=== PATIENT | female | born 1965 | race Caucasian/White ===

== ENCOUNTER 2017-06-15 15:30 | Outpatient (RCR) | payer OTHER ==
--- NOTE | 2017-03-20 11:53 | PT PLAN OF CARE ---
Physician: Eldon Fry MD Patient is being seen: 3x/Week Therapist: Eva Membreno, PT, DPT, CLT MEDICAL DIAGNOSIS: Singleton's Neuroma Removal, L Sural Nerve Neurolysis, Peroneal Tendon Debridement TREATMENT DIAGNOSIS: Singleton's Neuroma Removal, L Sural Nerve Neurolysis, Peroneal Tendon Debridement Date of Onset: 03/02/17 Date of Initial Evaluation: 03/15/17 Date patient was last seen: 03/20/17 Number of treatments: 3 Number of cancellations/No shows: 0 INTERVENTIONS: Manual Therapy/STM/MET Strengthening/condition Ice/Heat Range of Motion Ultrasound Stretching Iontophoresis Neuromuscular Re-ed Closed Chain Program Electrical Stim Posture/Body mechanics Gait Trg/Balance Trg Biofeedback Home Exercise Program Mech./Manual Traction Therapeutic Activities GOALS: In 3 weeks pt will improve L foot and ankle ROM to equal that of the R foot for increased functional mobility with ADL's. In Progress In 6 weeks pt will increase L foot and ankle strength to 5/5 for increased performance with ADL's and ambulation. In Progress In 6 weeks pt will be independent with HEP to maintain ankle mobility and strength. In Progress PATIENT'S GOAL: Improve L ankle/foot function. Status of Patient's Goals: In Progress Patient Compliance: Good Prognosis: Good Reasons for continuing therapy: Pt lateral ligaments remain intact with increased edema surrounding the lateral ankle. Pt had increased sensitivity surrounding the sural nerve which was decreased with nerve glides, and scar tissue mobilization surrounding. Despite pain pt continues to show improvements into ROM and strength. OBJECTIVE: Incision appears to be healing nicely without any signs of redness, warmth, or inflammation. Pt has minimal swelling throughout L lateral ankle. ROM: Ankle ROM (R,L): DF (15, 10), PF (80, 75), Inversion (60, 55), Eversion ( 20, 17) Strength: MMT Ankle: R 5/5 in all motions, L 4+/5 in DF and Inv, 3+/5 in PF and Evr. Palpation: Pt is tender to palpation along the distal aspect of her incision. Sensation: Pt reports decreased sensation on the dorsal aspect of the L toes and their proximal attachments. Mobility: Pt has decreased mobility throughout the foot with superior translation of the L first tarsal on the distal metatarsal. Balance: Deferred today. If you have any questions, comments, or concerns about this report or plan, please contact me at . Thank you, Eva Membreno, PT, DPT, OZIEL ROMERO
--- NOTE | 2017-04-07 11:00 | PT PLAN OF CARE ---
Physician: Eldon Fry MD Patient is being seen: 3x/Week Therapist: Eva Membreno, PT, DPT, CLT Medical Diagnosis: Singleton's Neuroma Removal, L Sural Nerve Neurolysis, Peroneal Tendon Debride Treatment Diagnosis: Singleton's Neuroma Removal, L Sural Nerve Neurolysis, Peroneal Tendon Debride Date of Onset: 03/02/17 Date of Initial Evaluation: 03/15/17 Date patient was last seen: 04/07/17 Number of treatments: 10 Number of cancellations/No shows: 0 INTERVENTIONS: Manual Therapy/STM/MET Strengthening/condition Ice/Heat Range of Motion Ultrasound Stretching Iontophoresis Neuromuscular Re-ed Closed Chain Program Electrical Stim Posture/Body mechanics Gait Trg/Balance Trg Biofeedback Home Exercise Program Mech./Manual Traction Therapeutic Activities GOALS: In 3 weeks pt will improve L foot and ankle ROM to equal that of the R foot for increased functional mobility with ADL's. MET In 6 weeks pt will increase L foot and ankle strength to 5/5 for increased performance with ADL's and ambulation. In Progress In 6 weeks pt will be independent with HEP to maintain ankle mobility and strength. In Progress PATIENT'S GOAL: Improve L ankle/foot function. Status of Patient's Goals: In Progress Patient Compliance: Good Prognosis: Good Reasons for continuing therapy: Michaelle shows good progress with PT with full ROM bilaterally as well as generally decreased pain. Pt remains to have hypersensitivity on the lateral L malleolus and posterior but shows improvement with stimulation and with decreased swelling. Pt strength shows improvements but remains decreased compared to the contralateral limb in plantar flexion, and eversion. Further PT is indicated to continue with strength and stability gains. OBJECTIVE: Incision appears to be healing nicely without any signs of redness, warmth, or inflammation and good overall mobility with minimal restrictions at the center point. Pt has minimal swelling throughout L lateral ankle. ROM: Ankle ROM (R,L): DF (12, 12), PF (70, 70), Inversion (60, 55), Eversion ( 20, 20) Strength: MMT Ankle: R 5/5 in all motions, L 4+/5 in DF and Evr, 4/5 in PF, 5/5 Inv Palpation: Pt has hypersensitivity to light touch on the lateral and posterior aspect of the lateral malleolus. Mobility: Joint mobility is good without restrictions Balance: 4 stage balance test: all stages to 30 seconds If you have any questions, comments, or concerns about this report or plan, please contact me at . Thank you, Eva Membreno, PT, DPT, CLT MTDD
[~2017-06-15 15:30] MED LIST: ASPI-1471 PO; ASPI-715 PO; BUSP10TA95 PO; CYCL-277 PO; DIA5 PO; DULO60CA56 PO; HYDR12.561 PO; IBU600 PO; IBUP600T22 PO; KET10 PO; LOR5 PO; LOR5/325 PO; LOSA50TA72 PO; MUSCLE RELAXOR; NEBI5TAB PO; NO MEDS; OLME20TA PO; ONDA4TAB PO; ONDA4TAB97 PO; OXYC-865 PO; PANT40SU3 PO; PER PO; PREG75CA60 PO; PRO25 PO; SIMV10TA98 PO
--- NOTE | 2017-06-15 16:25 | PT PLAN OF CARE ---
Physician: Eldon Fry MD Patient is being seen: 2-3x/Week Therapist: Eva Membreno, PT, DPT, CLT Medical Diagnosis: Singleton's Neuroma Removal, L Sural Nerve Neurolysis, Peroneal Tendon Debride Treatment Diagnosis: Singleton's Neuroma Removal, L Sural Nerve Neurolysis, Peroneal Tendon Debride Date of Onset: 03/02/17 Date of Initial Evaluation: 03/15/17 Date patient was last seen: 06/15/17 Number of treatments: 19 Number of cancellations/No shows: 6 INTERVENTIONS: Manual Therapy/STM/MET Strengthening/condition Ice/Heat Range of Motion Ultrasound Stretching Iontophoresis Neuromuscular Re-ed Closed Chain Program Electrical Stim Posture/Body mechanics Gait Trg/Balance Trg Biofeedback Home Exercise Program Mech./Manual Traction Therapeutic Activities GOALS: In 3 weeks pt will improve L foot and ankle ROM to equal that of the R foot for increased functional mobility with ADL's. MET In 6 weeks pt will increase L foot and ankle strength to 5/5 for increased performance with ADL's and ambulation. MET In 6 weeks pt will be independent with HEP to maintain ankle mobility and strength. MET PATIENT'S GOAL: Improve L ankle/foot function. Status of Patient's Goals: 3/3 Goals MET Patient Compliance: Good Prognosis: Good Reasons for discharge from therapy: Michaelle is to discharge from physical therapy at this time secondary to completion of 3/3 functional goals. Pt demonstrates good ankle mobility and strength as well as no pain or hypersensitivity. Pt balance at this time is currently limited most by likely inner ear dysfunction which pt is encouraged to seek further PT for upon discharge. Back pain is centralized and maintained at a low level and pt is compliant with HEP at this time to further progress with decreased pain and improved mobility. OBJECTIVE: ROM: Ankle ROM (R,L): DF (12, 12), PF (75, 75), Inversion (55, 55), Eversion ( 25, 25) Strength: MMT Ankle: R 5/5 in all motions Palpation: Pt has hypersensitivity to light touch on the lateral and posterior aspect of the lateral malleolus. Mobility: Joint mobility is good without restrictions Balance: 4 stage balance test: all stages to 30 seconds If you have any questions, comments, or concerns about this report or plan, please contact me at . Thank you, Eva Membreno, PT, DPT, CLT MTDD
== END 2017-06-15 18:00 | disposition home or self-care (01) ==
LOC: PT 15:30
PROVIDERS: ATTEND Physician Assistant
DX: M25.571 Pain in right ankle and joints of right foot (principal); M25.572 Pain in left ankle and joints of left foot; M54.5 Low back pain; M24.272 Disorder of ligament, left ankle; W10.8XXA Fall (on) (from) other stairs and steps, initial encounter; Y92.009 Unspecified place in unspecified non-institutional (private) residence as the place of occurrence of the external cause

== ENCOUNTER 2017-09-07 08:02 | Emergency (ER) | payer OTHER ==
[~2017-09-07 08:02] MED LIST changes: +OLM20 PO; -OLME20TA PO
--- NOTE | 2017-09-07 08:05 | ER Report ---
History and Physical Time Seen By MD: 08:04 HPI/ROS CHIEF COMPLAINT: Headache, left-sided neck pain and left arm weakness HISTORY OF PRESENT ILLNESS: Patient is a 51-year-old female who has a past medical history for postconcussive syndrome with headache. She states over the past 3 week she's had her persistent headache symptoms but has noticed some left -sided neck discomfort along with some weakness into her left upper extremity along with some balance issues. She denies any new head injury. She denies fevers or chills. She denies any pain with chewing. She does report some nausea without vomiting. She denies chest pain or shortness of breath. She denies any lower extremity weakness. Patient denies any saddle anesthesia she denies any urinary retention or incontinence. REVIEW OF SYSTEMS: Constitutional: No fever, no chills. Eyes: No discharge. No diplopia ENT: No sore throat. Cardiovascular: No chest pain, no palpitations. Respiratory: No cough, no shortness of breath. Gastrointestinal: No abdominal pain, no vomiting. Genitourinary: No hematuria. Musculoskeletal: No back pain. Skin: No rashes. Neurological: Chronic headache, left upper extremity weakness Allergies: Coded Allergies: No Known Drug Allergies (Verified , 09/17/16) Home Meds Reported Medications Ibuprofen (IBUPROFEN) 600 Mg Tablet, 1 TAB PO Q6H, TAB 09/07/17 Oxybutynin Chloride (OXYBUTYNIN CHLORIDE) 5 Mg Tablet, 5 MG PO QDAY, TAB 09/07/17 Lamotrigine (LAMOTRIGINE) 25 Mg Tb.chw.dsp, 25 MG PO 09/07/17 Buspirone Hcl (BUSPIRONE HCL) 10 Mg Tablet, PO BID, #10 TAB 09/17/16 Pregabalin (LYRICA) 75 Mg Capsule, 75 MG PO BID, CAPSULE 09/17/16 Aspirin (ASPIR 81) 81 Mg Tablet.dr, 81 MG PO QDAY, TAB 06/12/16 Nebivolol Hcl (BYSTOLIC) 5 Mg Tablet, 5 MG PO DAILY 03/18/16 Duloxetine Hcl (CYMBALTA) 60 Mg Capsule.dr, 120 MG PO QHS, CAP 11/11/14 Hx Smoking: Yes Smoking Status: Current: Every Day Smoker Exposure to Second Hand Smoke?: Yes Hx Substance Use Disorder: No Hx Alcohol Use: No Constitutional Vital Sign - Last 24 Hours 09/07/17 08:07 Temp 97.9 Pulse 72 Resp 20 B/P (MAP) 127/93 Pulse Ox 97 O2 Delivery Room Air Physical Exam General/Constitutional: Patient is awake, alert, nontoxic and in no acute respiratory distress. Head: Normocephalic and atraumatic. Eyes: Conjunctival clear, Pupils are equal and reactive to light. Extraocular muscles are intact and symmetrical. Sclera are clear and anicteric. Otoscopic exam reveals sharp disks bilaterally. Normal venous pulsations Ears:External canals are clear. Tympanic membranes are clear with normal landmarks and light reflex. Nares: No rhinorrhea or bleeding. Turbinates are pink and moist. Oropharyngeal: Mucous membranes are moist. There is no pharyngeal erythema or exudate. There are no palatal petechiae. Uvula is midline and symmetrical. Neck: Supple, no adenopathy. Cardiovascular: Heart is regular rate and rhythm without audible murmurs, rubs or gallops. Pulmonary: Lungs are clear to auscultation bilaterally. There are no wheezes, rales, or rhonchi. Chest rise is symmetrical Abdomen: Soft, nontender, no guarding or peritoneal signs. Extremities: No gross deformities, No peripheral cyanosis. Able to move all 4 extremities. Neuro: Alert and oriented X3, Cranial nerves 2 thru 12 are intact and symmetrical. Patient has normal gait. Patient complains of numbness to the thumb index and 3rd finger of the left arm. Patient has weakness compared to the right arm with regard to flexion of the bicep and extension at the tricep of the left arm. Skin: No rashes, skin is warm dry and well perfused. Medical Decision Making Data Points Result Diagram: 09/07/17 0818 09/07/17 0818 Laboratory Hematology Test 09/07/17 08:08 09/07/17 08:18 Urine Color Yellow Urine Clarity Slightly-cloudy Urine pH 5.0 pH (4.8-9.5) Urine Specific [place] 1.018 Urine Protein Negative mg/dL (NEGATIVE) Urine Glucose (UA) Negative mg/dL (NEGATIVE) Urine Ketones Negative mg/dL (NEGATIVE) Urine Blood Moderate (NEGATIVE) Urine Nitrite Negative (NEGATIVE) Urine Bilirubin Negative (NEGATIVE) Urine Urobilinogen Negative mg/dL (0.2-1.9) Urine Leukocyte Esterase Negative (NEGATIVE) Urine RBC 1 /HPF (0-2/HPF) Urine WBC 3 /HPF (0-5/HPF) Urine Squamous Epithelial Cells Many /LPF (</=FEW) Urine Bacteria Negative /HPF (NONE-FEW) Urine Mucus Few /HPF (NONE-FEW) Red Blood Count 4.81 M/uL (4.17-5.56) Mean Corpuscular Volume 92.1 fL (80.0-96.0) Mean Corpuscular Hemoglobin 32.8 pg (26.0-33.0) Mean Corpuscular Hemoglobin Concent 35.6 g/dL (32.0-36.0) Red Cell Distribution Width 13.0 % (11.5-14.5) Mean Platelet Volume 8.0 fL (7.2-11.1) Neutrophils (%) (Auto) 65.8 % (39.4-72.5) Lymphocytes (%) (Auto) 26.6 % (17.6-49.6) Monocytes (%) (Auto) 5.2 % (4.1-12.4) Eosinophils (%) (Auto) 1.2 % (0.4-6.7) Basophils (%) (Auto) 1.2 % (0.3-1.4) Nucleated RBC Relative Count (auto) 0.0 /100WBC Neutrophils # (Auto) 3.8 K/uL (2.0-7.4) Lymphocytes # (Auto) 1.5 K/uL (1.3-3.6) Monocytes # (Auto) 0.3 K/uL (0.3-1.0) Eosinophils # (Auto) 0.1 K/uL (0.0-0.5) Basophils # (Auto) 0.1 K/uL (0.0-0.1) Nucleated RBC Absolute Count (auto) 0.00 K/uL Peripheral Blood Smear No Y/N Sodium Level 143 mmol/L (137-145) Potassium Level 3.0 mmol/L (3.5-5.0) Chloride Level 101 mmol/L (98-107) Carbon Dioxide Level 27 mmol/L (22-31) Blood Urea Nitrogen 7 mg/dl (7-18) Creatinine 0.90 mg/dl (0.52-1.04) Glomerular Filtration Rate Calc > 60.0 Random Glucose 80 mg/dl (75-110) Calcium Level 9.7 mg/dl (8.4-10.2) Total Bilirubin 0.5 mg/dl (0.2-1.3) Aspartate Amino Transf (AST/SGOT) 15 U/L (0-35) Alanine Aminotransferase (ALT/SGPT) 13 U/L (0-56) Alkaline Phosphatase 53 U/L (0-126) Total Protein 7.3 gm/dl (6.3-8.2) Albumin 4.1 g/dl (3.5-5.0) Chemistry Test 09/07/17 08:08 09/07/17 08:18 Urine Color Yellow Urine Clarity Slightly-cloudy Urine pH 5.0 pH (4.8-9.5) Urine Specific [place] 1.018 Urine Protein Negative mg/dL (NEGATIVE) Urine Glucose (UA) Negative mg/dL (NEGATIVE) Urine Ketones Negative mg/dL (NEGATIVE) Urine Blood Moderate (NEGATIVE) Urine Nitrite Negative (NEGATIVE) Urine Bilirubin Negative (NEGATIVE) Urine Urobilinogen Negative mg/dL (0.2-1.9) Urine Leukocyte Esterase Negative (NEGATIVE) Urine RBC 1 /HPF (0-2/HPF) Urine WBC 3 /HPF (0-5/HPF) Urine Squamous Epithelial Cells Many /LPF (</=FEW) Urine Bacteria Negative /HPF (NONE-FEW) Urine Mucus Few /HPF (NONE-FEW) White Blood Count 5.8 k/uL (4.5-11.0) Red Blood Count 4.81 M/uL (4.17-5.56) Hemoglobin 15.8 g/dL (12.0-16.0) Hematocrit 44.3 % (34.0-47.0) Mean Corpuscular Volume 92.1 fL (80.0-96.0) Mean Corpuscular Hemoglobin 32.8 pg (26.0-33.0) Mean Corpuscular Hemoglobin Concent 35.6 g/dL (32.0-36.0) Red Cell Distribution Width 13.0 % (11.5-14.5) Platelet Count 233 K/uL (150-450) Mean Platelet Volume 8.0 fL (7.2-11.1) Neutrophils (%) (Auto) 65.8 % (39.4-72.5) Lymphocytes (%) (Auto) 26.6 % (17.6-49.6) Monocytes (%) (Auto) 5.2 % (4.1-12.4) Eosinophils (%) (Auto) 1.2 % (0.4-6.7) Basophils (%) (Auto) 1.2 % (0.3-1.4) Nucleated RBC Relative Count (auto) 0.0 /100WBC Neutrophils # (Auto) 3.8 K/uL (2.0-7.4) Lymphocytes # (Auto) 1.5 K/uL (1.3-3.6) Monocytes # (Auto) 0.3 K/uL (0.3-1.0) Eosinophils # (Auto) 0.1 K/uL (0.0-0.5) Basophils # (Auto) 0.1 K/uL (0.0-0.1) Nucleated RBC Absolute Count (auto) 0.00 K/uL Peripheral Blood Smear No Y/N Glomerular Filtration Rate Calc > 60.0 Calcium Level 9.7 mg/dl (8.4-10.2) Total Bilirubin 0.5 mg/dl (0.2-1.3) Aspartate Amino Transf (AST/SGOT) 15 U/L (0-35) Alanine Aminotransferase (ALT/SGPT) 13 U/L (0-56) Alkaline Phosphatase 53 U/L (0-126) Total Protein 7.3 gm/dl (6.3-8.2) Albumin 4.1 g/dl (3.5-5.0) Urinalysis Test 09/07/17 08:08 Urine Color Yellow Urine Clarity Slightly-cloudy Urine pH 5.0 pH (4.8-9.5) Urine Specific [place] 1.018 Urine Protein Negative mg/dL (NEGATIVE) Urine Glucose (UA) Negative mg/dL (NEGATIVE) Urine Ketones Negative mg/dL (NEGATIVE) Urine Blood Moderate (NEGATIVE) Urine Nitrite Negative (NEGATIVE) Urine Bilirubin Negative (NEGATIVE) Urine Urobilinogen Negative mg/dL (0.2-1.9) Urine Leukocyte Esterase Negative (NEGATIVE) Urine RBC 1 /HPF (0-2/HPF) Urine WBC 3 /HPF (0-5/HPF) Urine Squamous Epithelial Cells Many /LPF (</=FEW) Urine Bacteria Negative /HPF (NONE-FEW) Urine Mucus Few /HPF (NONE-FEW) EKG/Imaging Imaging [place]AC[place] [facility] [place]IENT NAME: Michaelle iWggins : 1965 MR: [id number] V: [id number] EXAM DATE: ORDERING PHYSICIAN: VICTORIANO CHE TECHNOLOGIST: Location: [facility] Patient: Michaelle Wiggins : 1965 Visit/Account:[id number] Date of Sevice: 09/07/2017 HEAD W/O CONTRAST, C-SPINE W/O CONTRAST Provided history: HEADACHE Additional pertinent history: none TECHNIQUE: Imaging was obtained from the skull base through the vertex, followed by spiral scan of the cervical spine without intravenous contrast. Source images were reformatted in the coronal sagittal planes. The cervical spine spiral source images were reformatted in the coronal and sagittal planes. One of the following dose optimization techniques was utilized in the performance of this exam: Automated exposure control; adjustment of the mA and/ or kV according to the patient's size; or use of an iterative reconstruction technique. Specific details can be referenced in the facility's radiology CT exam operational policy. COMPARISON STUDIES: 03/18/16 FINDINGS: BRAIN: Brain volume: Normal Acute cortical ischemia: None Chronic cortical and ganglionic ischemia: none significant Hemorrhage: None Masses / edema: None White matter: Normal Vessels: Normal Extra-axial: None significant Calvarium / scalp: Negative Skull base: negative Visualized sinuses / orbits: negative CERVICAL SPINE: Extra-vertebral soft tissues: Mild diffuse heterogeneity in the thyroid gland without a definable mass, unchanged from prior. Acute bone and soft tissue findings: None. There is a well-defined ossific density on the posterior margin of the left C7-T1 facet pillar, sagittal image 68 that is unchanged from prior and likely a sequela of old injury or a tiny unfused apophysis. This is not significant. Chronic / degenerative findings: Moderate scoliosis convex right at the cervicothoracic junction. Moderate marginal spurring anterior C1 ring odontoid junction unchanged. Mild disc space narrowing in the lower C-spine. Moderate-sized symmetric osteophyte at C6-7 without significant compromise of the canal. Left lateralization results in severe narrowing of the left foramen. The final is unchanged from prior. IMPRESSION: 1. Normal CT of the brain. No evidence of mass, acute ischemia or hemorrhage. 2. No acute bone or joint abnormality cervical spine. 3. Stable severe compromise left C6-C7 foramen. Report Dictated By: Jay Guzman MD at 09/07/2017 9:33 AM Report E-Signed By: Jay Guzman MD at 09/07/2017 9:40 AM ED Course/Re-evaluation Clinical Indication for ER IV: Hydration, IV Access ED Course 09/07/2017 8:35:22 am symptoms sound similar to the patient's postconcussive headache type syndrome. New motor weakness along with neck pain may be related to a cervical radiculopathy. Plan at this time will be CT of the head along the C-spine. We will give IV Toradol and Zofran. Decision to Disposition Date: September 07, 2017 Decision to Disposition Time: 09:55 Depart Departure Latest Vital Signs Vital Signs Date Time Temp Pulse Resp B/P (MAP) Pulse Ox O2 Delivery O2 Flow Rate FiO2 09/07/17 08:07 97.9 72 20 127/93 97 Room Air Impression: Primary Impression: Cervical radicular pain Condition: Improved Disposition: HOME OR SELF-CARE Referrals: KIA BLAKE (PCP) [facility] call to schedule follow up appointment for reevaluation of your cervical radiculopathy New Scripts Methocarbamol (ROBAXIN-750) 750 Mg Tablet 1500 MG PO TID for Muscle Relaxant, #30 TAB 0 Refills Prov: VICTORIANO CHE MD 09/07/17 Patient Instructions: Cervical Radiculopathy (ED) VICTORIANO CHE MD September 07, 2017 08:05
[2017-09-07] MEDS ORDERED: LAMO25TB PO (08:17)
[2017-09-07] MEDS ORDERED: OXYB5TAB86 PO (08:17)
[2017-09-07] MEDS ORDERED: IBUP600T22 PO (08:17)
[2017-09-07] MEDS ORDERED: KETOROLAC 30 MG/ML VIAL IVP ONE (08:25)
[2017-09-07] MEDS ORDERED: ONDANSETRON 4 MG/2 ML VIAL IVP ONE (08:25)
[2017-09-07] MEDS ORDERED: NS(*) 0.9% 1000 ML BAG 1,000 ML IV ONE (08:25)
[2017-09-07 08:37] LABS: PLATELET COUNT, AUTOMATED 233 K/uL (150-450)
[2017-09-07] MEDS ORDERED: ORPHENADRINE 60MG/2ML INJ IVP ONE (09:35)
[2017-09-07] MEDS ORDERED: DEXAMETHASONE SOD PHOS 10MG/ML IVP ONE (09:35)
--- NOTE | 2017-09-07 09:45 | RADIOLOGY IMAGING REPORT ---
FACILITY: [facility] - [place] PATIENT NAME: Michaelle Wiggins : 1965 MR: [id number] V: [id number] EXAM DATE: ORDERING PHYSICIAN: VICTORIANO CHE TECHNOLOGIST: Location: [facility] - [place] Patient: Michaelle Wiggins : 1965 Visit/Account:[id number] Date of Sevice: 09/07/2017 HEAD W/O CONTRAST, C-SPINE W/O CONTRAST Provided history: HEADACHE Additional pertinent history: none TECHNIQUE: Imaging was obtained from the skull base through the vertex, followed by spiral scan of th e cervical spine without intravenous contrast. Source images were reformatted in the coronal sagitta l planes. The cervical spine spiral source images were reformatted in the coronal and sagittal planes. One of the following dose optimization techniques was utilized in the performance of this exam: Autom ated exposure control; adjustment of the mA and/or kV according to the patient's size; or use of an i terative reconstruction technique. Specific details can be referenced in the facility's radiology CT exam operational policy. COMPARISON STUDIES: 03/18/16 FINDINGS: BRAIN: Brain volume: Normal Acute cortical ischemia: None Chronic cortical and ganglionic ischemia: none significant Hemorrhage: None Masses / edema: None White matter: Normal Vessels: Normal Extra-axial: None significant Calvarium / scalp: Negative Skull base: negative Visualized sinuses / orbits: negative CERVICAL SPINE: Extra-vertebral soft tissues: Mild diffuse heterogeneity in the thyroid gland without a definable ma ss, unchanged from prior. Acute bone and soft tissue findings: None. There is a well-defined ossific density on the posterior margin of the left C7-T1 facet pillar, sagittal image 68 that is unchanged from prior and likely a s equela of old injury or a tiny unfused apophysis. This is not significant. Chronic / degenerative findings: Moderate scoliosis convex right at the cervicothoracic junction. Moderate marginal spurring anterior C1 ring odontoid junction unchanged. Mild disc space narrowing in the lower C-spine. Moderate-sized symmetric osteophyte at C6-7 without significant compromise of the canal. Left lateralization results in severe narrowing of the left for amen. The final is unchanged from prior. IMPRESSION: 1. Normal CT of the brain. No evidence of mass, acute ischemia or hemorrhage. 2. No acute bone or joint abnormality cervical spine. 3. Stable severe compromise left C6-C7 foramen. Report Dictated By: Jay Guzman MD at 09/07/2017 9:33 AM Report E-Signed By: Jay Guzman MD at 09/07/2017 9:40 AM WSN:[id number]
--- NOTE | 2017-09-07 09:45 | RADIOLOGY IMAGING REPORT ---
[place]AC[place] [facility] [place]IENT NAME: Michaelle Wiggins : 1965 MR: [id number] V: [id number] EXAM DATE: ORDERING PHYSICIAN: VICTORIANO CHE TECHNOLOGIST: Location: [facility] Patient: Michaelle Wiggins : 1965 Visit/Account:[id number] Date of Sevice: 09/07/2017 HEAD W/O CONTRAST, C-SPINE W/O CONTRAST Provided history: HEADACHE Additional pertinent history: none TECHNIQUE: Imaging was obtained from the skull base through the vertex, followed by spiral scan of th e cervical spine without intravenous contrast. Source images were reformatted in the coronal sagitta l planes. The cervical spine spiral source images were reformatted in the coronal and sagittal planes. One of the following dose optimization techniques was utilized in the performance of this exam: Autom ated exposure control; adjustment of the mA and/or kV according to the patient's size; or use of an i terative reconstruction technique. Specific details can be referenced in the facility's radiology CT exam operational policy. COMPARISON STUDIES: 03/18/16 FINDINGS: BRAIN: Brain volume: Normal Acute cortical ischemia: None Chronic cortical and ganglionic ischemia: none significant Hemorrhage: None Masses / edema: None White matter: Normal Vessels: Normal Extra-axial: None significant Calvarium / scalp: Negative Skull base: negative Visualized sinuses / orbits: negative CERVICAL SPINE: Extra-vertebral soft tissues: Mild diffuse heterogeneity in the thyroid gland without a definable ma ss, unchanged from prior. Acute bone and soft tissue findings: None. There is a well-defined ossific density on the posterior margin of the left C7-T1 facet pillar, sagittal image 68 that is unchanged from prior and likely a s equela of old injury or a tiny unfused apophysis. This is not significant. Chronic / degenerative findings: Moderate scoliosis convex right at the cervicothoracic junction. Moderate marginal spurring anterior C1 ring odontoid junction unchanged. Mild disc space narrowing in the lower C-spine. Moderate-sized symmetric osteophyte at C6-7 without significant compromise of the canal. Left lateralization results in severe narrowing of the left for amen. The final is unchanged from prior. IMPRESSION: 1. Normal CT of the brain. No evidence of mass, acute ischemia or hemorrhage. 2. No acute bone or joint abnormality cervical spine. 3. Stable severe compromise left C6-C7 foramen. Report Dictated By: Jay Guzman MD at 09/07/2017 9:33 AM Report E-Signed By: Jay Guzman MD at 09/07/2017 9:40 AM WSN:[id number]
[2017-09-07] MEDS ORDERED: METH-543 PO (09:55)
[2017-09-07 09:57] VITALS: BP 131/82
== END 2017-09-07 10:06 | disposition home or self-care (01) ==
LOC: ER 08:06
DX: M54.12 Radiculopathy, cervical region (principal)
CPT/HCPCS: 70450; 72125; 81001; 85025; 85651; 96361; 96374; 96375; 99284; J1100; J1885; J2360; J2405; J7030; 82040; 82247; 82310; 82374; 82435; 82565; 82947; 84075; 84132; 84155; 84295; 84450; 84460; 84520

== ENCOUNTER → 2018-01-04 | Outpatient (CLI) | payer OTHER ==
[~2018-01-04] MED LIST changes: +BUS5 PO; +LAMO25TB7 PO; +LAMO50TA PO; +METH-543 PO; +OXYB5TAB86 PO; +PANT40TA65 PO; +SIMV-49 PO
[2018-01-04 08:12] LABS: LDL CHOLESTEROL 110 mg/dl
== END ==
LOC: LAB 07:14
PROVIDERS: ATTEND Internal Medicine
DX: I10 Essential (primary) hypertension (principal); E78.00 Pure hypercholesterolemia, unspecified
CPT/HCPCS: 36415; 82040; 82247; 82310; 82374; 82435; 82465; 82565; 82947; 83718; 84075; 84132; 84155; 84295; 84450; 84460; 84478; 84520

== ENCOUNTER 2018-01-17 08:15 | Outpatient (RCR) | payer OTHER ==
--- NOTE | 2017-10-23 09:31 | PT INITIAL EVALUATION ---
MEDICAL DIAGNOSIS: Cervical radiculopathy (M54.12) TREATMENT DIAGNOSIS: Same DATE OF ONSET: 09/07/17 SUBJECTIVE: Michaelle Wiggins presents to PT for L C6/7 radiculopathy with insidious onset September 07, 2017. She reports weakness and L C6/7 ache. She finds typing, lifting files, movement in general worsens neck and arm pain and nothing relieves it. She hasn't been doing her lumbar exercises due to this neck pain and she'd like to return to this. Pain location is posterior neck to L C6/7, sometimes R C6/7, intrascapular and described as ache, shooting pain. Pain scale is 4-9 on a ten point pain scale. Pain is worse with movement, typing, lifting files and better with traction. REHAB PROBLEM LIST: Increased Pain, Decreased ROM, Decreased C5/6/7 Strength PREVIOUS MEDICAL HISTORY: CRPS, L ankle reconstruction 2016, PE, HTN, post-concussion syndrome. OCCUPATION: Office work, DFS. OBJECTIVE: Posture: Mild forward head. ROM: AROM cervical spine WNL rotation B, 75% sidebend B, full extension and 50% flexion with L SB painful. Thoracic AROM WNL with mild R upper thoracic scoliosis. Strength: Biceps R 4/5, L 4-/5, wrist flexors R 5/5, L 4/5, triceps R 5/5, L 5-/ 5, otherwise C5-C8 5/5. 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 Palpation: High tone and pain posterior lower cervical region, overlying the L C6/7 facets Special Tests: DTR's 2/3 C4-7. ASSESSMENT: Michaelle Wiggins presents with L C5/6/7 chicas muscle weakness, radicular pain. She had less pain after traction and is started on cervical AROM for foramenal opening. Short Term Goals 3 weeks: L C6/7 symptoms centralized to the cervical spine, types with cervical pain 2/10. Patient's Goals Alleviate neck pain and weakness. PLAN: Patient to be seen for Manual Therapy, Range of Motion/Stretching, Spinal Stabilization, Posture/Body mechanics, Home Exercise Program, [facility] Manual Traction 3x/Week for 3 weeks Thank you for this referral. If you have any questions, comments, or concerns about this report or plan, please contact me at . [facility]
--- NOTE | 2017-11-22 15:34 | PT PLAN OF CARE ---
Physician: Dr. Nayan Dunlap Patient is being seen: 2-3x/week, 3 weeks Therapist: Delores Gómez, PT Medical Diagnosis: Cervical radiculopathy (M54.12) 11/22/17: R26.89 Imbalance Treatment Diagnosis: Same Date of Cervical Onset: 09/07/17 Date of Initial (Cervical) Evaluation: 10/23/17 Imbalance Onset: 03/11/2016 (Imbalance): 11/22/17 Date patient was last seen: Cervical: 11/10/17, Imbalance: 11/22/17 Number of treatments: 8 Number of cancellations/No shows: 0 Cervical INTERVENTIONS: Manual Therapy, Range of Motion, Spinal Stabilization, Stretching, Home Exercise Program GOALS: 3 weeks: L C6/7 symptoms centralized to the cervical spine (met), types with cervical pain 2/10 (not met). Imbalance: All not met: 1 month: Michaelle ambulates with head motion with normal line of progression, scrolls through computer work 10 minutes before having to look away. 2 months: Michaelle awakens with dizziness reduced 50%, demonstrates normal balance with turning 180 degrees. 3 months: Michaelle reports headaches and dizziness are reduced 50% with computer work, demonstrates normal postural control on uneven surfaces. PATIENT'S GOAL: Alleviate neck pain and weakness. not met Imbalance: Not met: Have less dizziness with computer work, scroll through the computer longer and with less dizziness. Patient Cervical Compliance: Excellent Prognosis: Excellent Reasons for continuing therapy: S: Cervical: Michaelle has finished her three weeks of PT with L C6/7 symptoms centralized to the lower cervical region, 4-8/10 pain scale, worse with lifting , but typing improved. She now reports L C4/5 symptoms at the scapula. Imbalance: Michaelle reports two CHI at home, 04/03/2015, vacuum fell on her R head, mild imbalance then 03/11/16, dog head butted the crown of her head with strong change of PARIKH's, balance, dizziness (computer work, gait with head motion , fatigue, neck motion), episodic vertigo (upon awakening in the morning). O: Cervical: Posture: Mild forward head. ROM: AROM cervical spine WNL rotation B, 25% sidebend B (full PROM sidebend), full extension and flexion with extension painful. Thoracic AROM WNL with mild R upper thoracic scoliosis. Strength: Biceps R 5-/5, L 4+/5, wrist flexors B 5/5, triceps B 5/5, R wrist extensors 5/5, L 4+/5. [employer] strength R 56 x3 lbs., L 45, 40, 39 lbs, with strickler attendant strength not changed significantly. Palpation: Still high tone and pain posterior lower cervical region, overlying the L C6/7 facets. Imbalance: Special tests: Positive head thrust, VOR x1, x2 for dizziness without nystagmus. Negative resting nystagmus, Spivey pike and roll test B, cerebellar tests. Proprioception intact B great toes and ankles. Gait: Functional gait assessment 20% impairment with LE dyskinesia with gait with head motion, walking forward eyes shut. Turning 180 deg with increased trunk sway, retro balance disturbance turning L, ambulating backwards with discordant steps. Heel/toe walking with mild dyskinesia but trunk control and change of gait speed is normal. Michaelle is able to clear 8" high curbs, uses stairs without handrail with control. Balance: Static stand on firm surface, eyes closed with increased postural sway , dizziness, head midline, on foam with eyes closed with strong A/P trunk sway, worse dizziness and retro balance loss, stepping reflex intact to recover balance. Static tandem stand with LOB from decreased trunk stability, UE extension balance reactions. Hip balance strategy is utilized instead of ankle strategy for postural sway. A/P: Cervical: Michaelle Wiggins had only a small reduction of cervical pain, improvement of ROM and centralization of L C6/7 radicular pain, but not significant change of strickler attendant strength, while chicas muscle testing was more even L to R. We've finished her 3 weeks of cervical PT. I feel she hasn't made significant gains with PT but please advise if you'd like further spinal PT. Thank you. Imbalance: Michaelle Wiggins presents with altered balance integration, altered balance strategies and dyskinesias consistent with her history of CHI, not peripheral vestibular disease. I wasn't able to elicit nystagmus or spinning vertigo in today's testing. She's a good candidate to work vestibular habituation, balance and gait training to reduce her vestibular symptoms with eye and head movement and to be less of a fall risk in gait. If you agree, we' ll work balance PT 2x/week 3 months to goals set. Thank you. HEATHER
--- NOTE | 2017-12-18 10:51 | PT PLAN OF CARE ---
Physician: Dr. Nayan Dunlap, Dr. Verona Simmons Patient is being seen: 5x/week Therapist: Delores Gómez PT Medical Diagnosis: Cervical radiculopathy (M54.12) Treatment Diagnosis: Same Date of Onset: 09/07/17 Date of Initial Evaluation: 10/23/17 Date patient was last seen: 12/18/17 Number of treatments: 20 Number of cancellations/No shows: 0 INTERVENTIONS: Manual Therapy Range of Motion Spinal Stabilization Stretching Home Exercise Program Mech./Manual Traction GOALS: 3 weeks: L C6/7 symptoms centralized to the cervical spine (met), types with cervical pain 2/10 (not met, 5/10). Imbalance: 1 month: Michaelle ambulates with head motion with normal line of progression (progressing), scrolls through computer work 10 minutes before having to look away (not met). 2 months: Michaelle awakens with dizziness reduced 50% (not met), demonstrates normal balance with turning 180 degrees (progressing). 3 months: (all not met): Michaelle reports headaches and dizziness are reduced 50 % with computer work, demonstrates normal postural control on uneven surfaces. PATIENT'S GOAL: Alleviate neck pain and weakness. not met Imbalance: Have less dizziness with computer work, scroll through the computer longer and with less dizziness. Patient Compliance: Excellent Prognosis: Excellent Reasons for continuing therapy: S: Cervical: Michaelle finds mechanical traction bothered her neck but manual traction helped centralize C4/5 symptoms to the neck and manual stretching and exercise centralized L C6/7 symptoms to the neck. Typing creates cervical pain 5 /10. Imbalance: Michaelle still has to look away after a few minutes of scrolling with her computer.She has LOB with turning 180 degrees in the shower, with bending forward to wash her legs in the shower. O: Cervical: Posture: Mild forward head. ROM: AROM cervical spine WNL rotation B, R sidebend 75% with L cervical soft tissue pain, L side bend full, full extension and flexion. Thoracic AROM WNL with mild R upper thoracic scoliosis. Palpation: Moderate tone and myofascial pain L LS, UT, tight subscapularis and pecs. Imbalance: Gait/balance: Michaelle now ambulates with minimal to no weaving during gait with head motion. She has retro balance disturbance with 180 deg. turns and out-of-sync feeling. VOR x1 still <2 Hz, dizziness, positive head thrust, VOR x2 for out-of-sync feeling. Improving postural stability with tandem stand, but not WNL. Mild increase of postural sway standing on foam, eyes closed, out-of-sync feeling reported. A/P: Michaelle Wiggins is improving cervical ROM, working on spinal and scapular strengthening, is slowly habituating her vestibular system from her CHI's. If you agree, we'll continue 3x/week cervical PT, 2x/week balance PT, for 2 more months. Thank you. HEATHER
[~2018-01-17 08:15] MED LIST changes: -LOSA50TA72 PO; +LOSA50TA74 PO
== END 2018-01-21 ==
LOC: PT 08:15
PROVIDERS: ATTEND Neurological Surgery
DX: M54.12 Radiculopathy, cervical region (principal); I10 Essential (primary) hypertension; F07.81 Postconcussional syndrome
CPT/HCPCS: 97162

== ENCOUNTER 2018-01-24 15:22 | Outpatient (RCR) | payer OTHER ==
--- NOTE | 2018-01-22 17:23 | PT PLAN OF CARE ---
Physician: Dr. Nayan Dunlap, Dr. Verona Simmons 3 month business office note Patient is being seen: 2-3x/week Therapist: Delores Gómez PT Medical Diagnosis: Cervical radiculopathy (M54.12) Treatment Diagnosis: Same Date of Onset: 09/07/17 Date of Initial Evaluation: 10/23/17 Date patient was last seen: 01/22/18 Number of treatments: 26 Number of cancellations/No shows: 0 INTERVENTIONS: Balance, Vestibular Exercise, Cervical Manual Therapy, Stretching, Spinal Stabilization and Muscle Balancing Exercise, Manual Traction GOALS: 3 weeks: L C6/7 symptoms centralized to the cervical spine (partially met), types with cervical pain 2/10 (progressing, 4/10). Imbalance: 1 month: Michaelle ambulates with head motion with normal line of progression (met), scrolls through computer work 10 minutes before having to look away (not met, still 5 minutes). 2 months: Michaelle awakens with dizziness reduced 50% (not met), demonstrates normal balance with turning 180 degrees (not met). 3 months: (all not met): Michaelle reports headaches and dizziness are reduced 50% with computer work, demonstrates normal postural control on uneven surfaces. PATIENT'S GOAL: Alleviate neck pain and weakness. (not met) Imbalance: Have less dizziness with computer work, scroll through the computer longer and with less dizziness. (both not met) Patient Compliance: Excellent Prognosis: Excellent Reasons for continuing cervical therapy/discontinuing balance therapy: S: Michaelle continues to reports L hand numbness with typing 10 minutes, but less intense, 4/10 at the neck and hand, can scroll slowly through the computer pages for 5 minutes then dizziness. She still awakens with dizziness, is dizzy with eyes shut. The balance exercises were aggravating her ankles, causing difficulty walking, flaring LBP and gait with head motion is flaring her cervical pain. Cervical: Posture: Mild forward head. ROM: AROM cervical spine WNL rotation B, full sidebend and extension and 75% flexion with L SB still painful. Thoracic AROM WNL with mild R upper thoracic scoliosis. Strength: NT today except core strength 3+/5. Palpation: Moderate tone now and still pain posterior lower cervical region, overlying the L C6/7 facets. Pec minor, subscapularis and scaleni are still tight. Balance: Vestibular: VOR x1 causes dizziness still <2 Hz. Gait with head rotation with normal line of progression. 180 deg. turns at slow speed with balance control, at fast speed with LOB, out-of-sync feeling and can trigger a headache. No nystagmus with vestibular exercises. Postural control: Static stand on firm surface with retro balance loss now, out-of-sync feeling. A/P: Vestibular training is hindered by Michaelle's ankles and LBP flaring. I feel they and her cervical pain are hindering balance training. If you agree, I'll discharge imbalance PT for now, address cervical pain and weakness, doing full spine strengthening, manual therapy, stretching to goals met. When her cervical pain has settled down, I'll call for a imbalance PT script from Dr. Simmons's office. We'll continue cervical PT 2-3x/week another 6 weeks. Thank you. HEATHER
[2018-02-06] MEDS ORDERED: LIDO700A19 TOP (09:36)
[2018-02-20] MEDS ORDERED: FLU60VIA41 IM (08:53)
--- NOTE | 2018-03-06 12:57 | PT PLAN OF CARE ---
Physician: Dr. Nayan Dunlap Patient has stopped attending PT Therapist: Delores Gómez, PT Medical Diagnosis: Cervical radiculopathy (M54.12) Treatment Diagnosis: Same Date of Onset: 09/07/17 Date of Initial Evaluation: 10/23/17 Date patient was last seen: 01/26/18 Number of treatments: 27 Number of cancellations/No shows: [*] INTERVENTIONS: Manual Therapy Range of Motion Spinal Stabilization Stretching Posture/Body mechanics Home Exercise Program Manual Traction GOALS: 3 weeks: L C6/7 symptoms centralized to the cervical spine (partially met), types with cervical pain 2/10 (progressing, 4/). Imbalance: 1 month: Michaelle ambulates with head motion with normal line of progression (met), scrolls through computer work 10 minutes before having to look away (not met). 2 months: Michaelle awakens with dizziness reduced 50% (not met), demonstrates normal balance with turning 180 degrees (progressing). 3 months: (all not met): Michaelle reports headaches and dizziness are reduced 50% with computer work, demonstrates normal postural control on uneven surfaces. PATIENT'S GOAL: Alleviate neck pain and weakness. (not met) Imbalance: Have less dizziness with computer work, scroll through the computer longer and with less dizziness. (both not met) Patient Compliance: Fair Prognosis: Excellent Reasons for discontinuing therapy: Michaelle attended one more time after the Plan of Care note of 02/01/18. Please see that note for last measures. I had discharged balance PT as her ankle didn't tolerate it. She'd had moderate cervical pain and hand paresthesia on the that responded well to exercise and manual therapy. I'll DC PT due to non-attendance. Thank you. HEATHER
== END 2018-01-24 18:00 | disposition home or self-care (01) ==
LOC: PT 15:22
PROVIDERS: ATTEND Neurological Surgery
DX: M54.12 Radiculopathy, cervical region (principal); R26.89 Other abnormalities of gait and mobility; M62.81 Muscle weakness (generalized)

== ENCOUNTER → 2018-01-30 | Outpatient (CLI) | payer OTHER ==
[2018-01-30 09:08] LABS: PLATELET COUNT, AUTOMATED 247 K/uL (150-450)
--- NOTE | 2018-01-30 15:19 | RADIOLOGY IMAGING REPORT ---
FACILITY: [facility] - [place] PATIENT NAME: Michaelle Wiggins : 1965 MR: [id number] V: [id number] EXAM DATE: ORDERING PHYSICIAN: KRISTOFER LEDEZMA TECHNOLOGIST: Location[place] [facility] [place] Patient: Michaelle Wiggins : 1965 Visit/Account:[id number] Date of Sevice: 01/30/2018 KUB SINGLE VIEW ABDOMEN History: Left lower quadrant pain. Comparison study: None. Findings: There are no dilated loops of large or small bowel to suggest ileus or obstruction. There are no findings of a renal calculus. There are phleboliths in the pelvis. In the region of th e distal left ureter there is a small calcific density oriented along the course of the ureter. Jamal elation clinical exam or UA specimen would be helpful. IMPRESSION: 1. Nonspecific bowel gas pattern without findings of ileus or obstruction. 2. Query distal left ureteral calculus. A CT scan might be helpful for further evaluation. Correla tion with clinical exam would also be helpful. Report Dictated By: Brent Arce MD at 01/30/2018 3:14 PM Report E-Signed By: Brent Arce MD at 01/30/2018 3:15 PM [id number]
== END ==
LOC: LAB 08:49
PROVIDERS: ATTEND Internal Medicine
DX: N20.1 Calculus of ureter (principal); R32 Unspecified urinary incontinence; R31.9 Hematuria, unspecified; E11.9 Type 2 diabetes mellitus without complications
CPT/HCPCS: 36415; 74018; 81001; 82040; 82150; 82247; 82310; 82374; 82435; 82565; 82947; 83690; 84075; 84132; 84155; 84295; 84450; 84460; 84520; 85025; 87088

== ENCOUNTER 2018-02-01 14:39 | Emergency (ER) | payer OTHER ==
--- NOTE | 2018-02-01 14:58 | ER Report ---
History and Physical Time Seen By MD: 14:54 HPI/ROS CHIEF COMPLAINT: Left side pain HISTORY OF PRESENT ILLNESS: This is a 52-year-old female presents to the emergency department for left-sided pain. Patient states that she's been ill with cold-like symptoms over the last several weeks. Patient states today at around noon she developed sudden left-sided pain, that radiated into the groin and left flank. Patient has had nausea no vomiting. Intermittent pain. No fevers or chills. No shortness of breath or chest pain. No history of kidney stones. No dysuria or GI symptoms. REVIEW OF SYSTEMS: Constitutional: No fever, no chills. Eyes: No discharge. ENT: No sore throat. Cardiovascular: No chest pain, no palpitations. Respiratory: No cough, no shortness of breath. Gastrointestinal: As above. Genitourinary: No hematuria. Musculoskeletal: No back pain. Skin: No rashes. Neurological: No headache. Allergies: Coded Allergies: No Known Drug Allergies (Verified , 02/01/18) Home Meds Active Scripts Acyclovir (ACYCLOVIR) 800 Mg Tablet, 800 MG PO QID for 5 Days, #20 TAB 0 Refills Prov:CISCO ROCA FLIPPING MACHINE OPERATOR-BC 02/01/18 Simvastatin (SIMVASTATIN) 20 Mg Tablet, 1 TAB PO HS, #30 TAB 11 Refills Prov:KRISTOFER LEDEZMA MD 01/03/18 Pantoprazole Sodium (PANTOPRAZOLE SODIUM) 40 Mg Tablet.dr, 1 TAB PO QDAY, #30 TAB.SR 11 Refills Prov:KRISTOFER LEDEZMA MD 01/03/18 Buspirone Hcl (BUSPIRONE HCL) 5 Mg Tab, 2 TAB PO BID, #60 TAB 5 Refills Prov:KRISTOFER LEDEZMA MD 01/03/18 Ibuprofen (IBUPROFEN) 600 Mg Tablet, 1 TAB PO Q6H, #30 TAB 2 Refills Prov:KRISTOFER LEDEZMA MD 01/03/18 Oxybutynin Chloride (OXYBUTYNIN CHLORIDE) 5 Mg Tablet, 1 TAB PO QDAY, #30 TAB 11 Refills Prov:KRISTOFER LEDEZMA MD 01/03/18 Pregabalin (LYRICA) 75 Mg Capsule, 1 TAB PO BID, #60 CAPSULE 5 Refills Prov:KRISTOFER LEDEZMA MD 01/03/18 Duloxetine Hcl (CYMBALTA) 60 Mg Capsule.dr, 1 TAB PO BID, #60 CAP 5 Refills Prov:KRISTOFER LEDEZMA MD 01/03/18 Reported Medications Hydrochlorothiazide (HYDROCHLOROTHIAZIDE) 12.5 Mg Tablet, 1 TAB PO QDAY, TAB 01/03/18 Lamotrigine (LAMOTRIGINE) 50 Mg Tab.er.24, 5 TAB PO DAILY, #30 2 tab in am and 3 tab in pm 01/03/18 Aspirin (ASPIR 81) 81 Mg Tablet.dr, 1 TAB PO QDAY, TAB 06/12/16 Past Medical/Surgical History The patient has a past medical and surgical history of complex regional pain syndrome, migraines, hypertension, pulmonary embolus, IBS, pancreatitis, tendon rupture and repair of the left ankle, back pain, bilateral knee and ankle surgery. Reviewed Nurses Notes: Yes Hx Smoking: Yes Smoking Status: Current: Every Day Smoker Exposure to Second Hand Smoke?: Yes Hx Substance Use Disorder: No Hx Alcohol Use: No Constitutional Vital Sign - Last 24 Hours 02/01/18 02/01/18 02/01/18 02/01/18 14:39 14:52 14:54 14:55 Temp 98.7 Pulse ??? 54 ??? Resp 18 B/P (MAP) 151/97 151/97 (115) Pulse Ox 97 O2 Delivery Room Air 02/01/18 02/01/18 02/01/18 02/01/18 15:00 15:09 15:24 15:30 Pulse 50 54 B/P (MAP) 151/94 (113) 128/78 (95) Pulse Ox 95 96 02/01/18 02/01/18 02/01/18 02/01/18 15:39 15:54 16:00 16:09 Pulse 52 54 47 B/P (MAP) ???/??? (1665) Pulse Ox 93 93 95 02/01/18 02/01/18 02/01/18 02/01/18 16:14 16:29 16:30 16:44 Pulse 66 66 ??? B/P (MAP) 137/96 (110) Pulse Ox 95 94 02/01/18 02/01/18 02/01/18 02/01/18 16:51 16:59 17:00 17:14 Pulse 49 50 B/P (MAP) 145/99 (114) 140/79 (99) Pulse Ox 95 93 02/01/18 02/01/18 02/01/18 02/01/18 17:29 17:30 17:44 17:49 Pulse 46 50 48 B/P (MAP) 146/96 (113) Pulse Ox 95 94 98 Physical Exam General Appearance: The patient is alert, has no immediate need for airway protection and no signs of toxicity. Eyes: Pupils equal and round no pallor or injection. ENT, Mouth: Mucous membranes are moist. Respiratory: There are no retractions, lungs are clear to auscultation. Cardiovascular: Regular rate and rhythm, no murmurs, clicks or rubs. Gastrointestinal: Abdomen is soft, tenderness to the left upper and lower quadrants, no abdominal bruits, no masses, hypoactive bowel sounds. Left sided CVA tenderness. Neurological: Alert and oriented 4. Moving all extremities. Following all commands. No focal neuro deficits. Skin: Warm and dry, no rashes. Musculoskeletal: Neck is supple non tender. Extremities are nontender, nonswollen and have full range of motion. DIFFERENTIAL DIAGNOSIS: After history and physical exam differential diagnosis was considered for abdominal pain in a female including but not limited to ovarian cyst, pelvic inflammatory disease, ovarian torsion, renal colic, urinary tract infection, and appendicitis. Medical Decision Making Data Points Result Diagram: 02/01/18 1526 02/01/18 1526 Laboratory Hematology Test 02/01/18 14:53 02/01/18 15:26 Urine Color Straw Urine Clarity Clear Urine pH 5.0 pH (4.8-9.5) Urine Specific [place] 1.006 Urine Protein Negative mg/dL (NEGATIVE) Urine Glucose (UA) Negative mg/dL (NEGATIVE) Urine Ketones Negative mg/dL (NEGATIVE) Urine Blood Moderate (NEGATIVE) Urine Nitrite Negative (NEGATIVE) Urine Bilirubin Negative (NEGATIVE) Urine Urobilinogen Negative mg/dL (0.2-1.9) Urine Leukocyte Esterase Negative (NEGATIVE) Urine RBC 1 /HPF (0-2/HPF) Urine WBC None /HPF (0-5/HPF) Urine Squamous Epithelial Cells Many /LPF (</=FEW) Urine Bacteria Negative /HPF (NONE-FEW) Urine Mucus None /HPF (NONE-FEW) Red Blood Count 4.59 M/uL (4.17-5.56) Mean Corpuscular Volume 90.5 fL (80.0-96.0) Mean Corpuscular Hemoglobin 31.8 pg (26.0-33.0) Mean Corpuscular Hemoglobin Concent 35.1 g/dL (32.0-36.0) Red Cell Distribution Width 12.9 % (11.5-14.5) Mean Platelet Volume 7.8 fL (7.2-11.1) Neutrophils (%) (Auto) 64.2 % (39.4-72.5) Lymphocytes (%) (Auto) 28.7 % (17.6-49.6) Monocytes (%) (Auto) 4.8 % (4.1-12.4) Eosinophils (%) (Auto) 1.2 % (0.4-6.7) Basophils (%) (Auto) 1.1 % (0.3-1.4) Nucleated RBC Relative Count (auto) 0.0 /100WBC Neutrophils # (Auto) 4.9 K/uL (2.0-7.4) Lymphocytes # (Auto) 2.2 K/uL (1.3-3.6) Monocytes # (Auto) 0.4 K/uL (0.3-1.0) Eosinophils # (Auto) 0.1 K/uL (0.0-0.5) Basophils # (Auto) 0.1 K/uL (0.0-0.1) Nucleated RBC Absolute Count (auto) 0.00 K/uL Sodium Level 137 mmol/L (137-145) Potassium Level 3.6 mmol/L (3.5-5.0) Chloride Level 104 mmol/L (98-107) Carbon Dioxide Level 22 mmol/L (22-31) Blood Urea Nitrogen 8 mg/dl (7-18) Creatinine 0.70 mg/dl (0.52-1.04) Glomerular Filtration Rate Calc > 60.0 Random Glucose 98 mg/dl (75-110) Calcium Level 9.0 mg/dl (8.4-10.2) Total Bilirubin 0.2 mg/dl (0.2-1.3) Aspartate Amino Transf (AST/SGOT) 12 U/L (0-35) Alanine Aminotransferase (ALT/SGPT) 16 U/L (0-56) Alkaline Phosphatase 42 U/L (0-126) Total Protein 6.8 g/dl (6.3-8.2) Albumin 4.0 g/dl (3.5-5.0) Lipase 89 U/L (23-300) Chemistry Test 02/01/18 14:53 02/01/18 15:26 Urine Color Straw Urine Clarity Clear Urine pH 5.0 pH (4.8-9.5) Urine Specific [place] 1.006 Urine Protein Negative mg/dL (NEGATIVE) Urine Glucose (UA) Negative mg/dL (NEGATIVE) Urine Ketones Negative mg/dL (NEGATIVE) Urine Blood Moderate (NEGATIVE) Urine Nitrite Negative (NEGATIVE) Urine Bilirubin Negative (NEGATIVE) Urine Urobilinogen Negative mg/dL (0.2-1.9) Urine Leukocyte Esterase Negative (NEGATIVE) Urine RBC 1 /HPF (0-2/HPF) Urine WBC None /HPF (0-5/HPF) Urine Squamous Epithelial Cells Many /LPF (</=FEW) Urine Bacteria Negative /HPF (NONE-FEW) Urine Mucus None /HPF (NONE-FEW) White Blood Count 7.6 k/uL (4.5-11.0) Red Blood Count 4.59 M/uL (4.17-5.56) Hemoglobin 14.6 g/dL (12.0-16.0) Hematocrit 41.5 % (34.0-47.0) Mean Corpuscular Volume 90.5 fL (80.0-96.0) Mean Corpuscular Hemoglobin 31.8 pg (26.0-33.0) Mean Corpuscular Hemoglobin Concent 35.1 g/dL (32.0-36.0) Red Cell Distribution Width 12.9 % (11.5-14.5) Platelet Count 267 K/uL (150-450) Mean Platelet Volume 7.8 fL (7.2-11.1) Neutrophils (%) (Auto) 64.2 % (39.4-72.5) Lymphocytes (%) (Auto) 28.7 % (17.6-49.6) Monocytes (%) (Auto) 4.8 % (4.1-12.4) Eosinophils (%) (Auto) 1.2 % (0.4-6.7) Basophils (%) (Auto) 1.1 % (0.3-1.4) Nucleated RBC Relative Count (auto) 0.0 /100WBC Neutrophils # (Auto) 4.9 K/uL (2.0-7.4) Lymphocytes # (Auto) 2.2 K/uL (1.3-3.6) Monocytes # (Auto) 0.4 K/uL (0.3-1.0) Eosinophils # (Auto) 0.1 K/uL (0.0-0.5) Basophils # (Auto) 0.1 K/uL (0.0-0.1) Nucleated RBC Absolute Count (auto) 0.00 K/uL Glomerular Filtration Rate Calc > 60.0 Calcium Level 9.0 mg/dl (8.4-10.2) Total Bilirubin 0.2 mg/dl (0.2-1.3) Aspartate Amino Transf (AST/SGOT) 12 U/L (0-35) Alanine Aminotransferase (ALT/SGPT) 16 U/L (0-56) Alkaline Phosphatase 42 U/L (0-126) Total Protein 6.8 g/dl (6.3-8.2) Albumin 4.0 g/dl (3.5-5.0) Lipase 89 U/L (23-300) Urinalysis Test 02/01/18 14:53 Urine Color Straw Urine Clarity Clear Urine pH 5.0 pH (4.8-9.5) Urine Specific [place] 1.006 Urine Protein Negative mg/dL (NEGATIVE) Urine Glucose (UA) Negative mg/dL (NEGATIVE) Urine Ketones Negative mg/dL (NEGATIVE) Urine Blood Moderate (NEGATIVE) Urine Nitrite Negative (NEGATIVE) Urine Bilirubin Negative (NEGATIVE) Urine Urobilinogen Negative mg/dL (0.2-1.9) Urine Leukocyte Esterase Negative (NEGATIVE) Urine RBC 1 /HPF (0-2/HPF) Urine WBC None /HPF (0-5/HPF) Urine Squamous Epithelial Cells Many /LPF (</=FEW) Urine Bacteria Negative /HPF (NONE-FEW) Urine Mucus None /HPF (NONE-FEW) EKG/Imaging Imaging Location: [facility] - [place] Patient: Michaelle Wiggins : 1965 Visit/Account:[id number] Date of Sevice: 02/01/2018 CT abdomen and pelvis without contrast Indication: Abdominal pain. More left-sided. Comparison: 02/08/2009. Technique: Axial CT images are obtained through the abdomen and pelvis. Reformatted coronal and sagittal images were reviewed. IV contrast was not administered. One of the following dose optimization techniques was utilized in the performance of this exam: automated exposure control; adjustment of the mA and/or kV according to the patient's size; or use of an iterative reconstruction technique. Specific details can be referenced in the facility's radiology CT exam operational policy. Findings: Lower lung becerra: Limited views lower lung field are unremarkable. Evaluation of the solid organs of the abdomen is limited without IV contrast. Liver: No focal parenchymal abnormality of the liver. Biliary: Gallbladder appears unremarkable as well as the intra and extra hepatic biliary system. Pancreas: No focal abnormality. Spleen: Normal appearance. Adrenal glands: Unremarkable. Kidneys / retroperitoneum: No evidence of nephrolithiasis or hydronephrosis. No focal abnormality. Bowel / peritoneum / mesenteries: Colon shows no focal normality. The appendix normal. Small bowel shows no focal normality or obstruction. Stomach is unremarkable. No free air, free fluid, fluid collections or areas of inflammation. Lymph node assessment: No pathologic adenopathy identified. Pelvic structures: Pelvic structures visualized within normal limits. Mul tiple vascular phleboliths are present in the pelvis. Vessels: No significant atherosclerotic calcifications seen throughout a nonaneurysmal abdominal aorta and branches. Musculoskeletal / Body wall: No acute or aggressive osseous abnormality. Mild degenerative changes spine and hips. IMPRESSION: 1. No acute intra-abdominal abnormality identified. Report Dictated By: Deon Peres at 02/01/2018 4:25 PM Report E-Signed By: Deon Peres at 02/01/2018 4:31 PM WSN:[id number] ED Course/Re-evaluation Clinical Indication for ER IV: Hydration, IV Access ED Course The patient was admitted to room. A history physical obtained. Differential diagnoses were considered. An IV was started. A CBC, CMP were obtained. UA was collected. Lab studies unremarkable. UA showing small blood. CT of the abdomen pelvis was negative for any acute intra-abdominal abnormalities, specifically no kidney stone. The patient did have a very heightened sense of light touch to the left flank that did wrap around to the left side, I did discuss this with the patient, I did tell her that this could be a shingles eruption. I also tried a 30 mg IV Toradol dose to see if this would help with any potential renal colic, did not provide any relief. Patient agreed to try acyclovir 4 shingles infection, prescription was sent to the patient's pharmacy. The patient was also instructed to follow-up with her primary care provider for any other concerns or worsening symptoms. Patient expressed understanding and was discharged home. Decision to Disposition Date: Feb 01, 2018 Decision to Disposition Time: 17:52 Depart Departure Latest Vital Signs Vital Signs Date Time Temp Pulse Resp B/P (MAP) Pulse Ox O2 Delivery O2 Flow Rate FiO2 02/01/18 17:49 48 98 02/01/18 17:30 146/96 (113) 02/01/18 14:52 98.7 18 Room Air Impression: Primary Impression: Left flank pain Condition: Improved Disposition: HOME OR SELF-CARE Referrals: KRISTOFER LEDEZMA MD (PCP) New Scripts Acyclovir (ACYCLOVIR) 800 Mg Tablet 800 MG PO QID for 5 Days, #20 TAB 0 Refills Prov: CISCO ROCA 02/01/18 Patient Instructions: Flank Pain (ED), Shingles (ED) Additional Instructions: No concerning findings on the CT today, no kidney stone. I think the pain you are experiencing may be related to shingles. Take the Valtrex as indicated for 5 days. Drink plenty of water. Get plenty of rest. Follow up with your primary care provider within one week for reevaluation, before you leave on your trip. Return to the ED for any other concerns or worsening symptoms. CISCO ROCA-MILLA Feb 01, 2018 14:58
[2018-02-01] MEDS ORDERED: NS(*) 0.9% 1000 ML BAG 1,000 ML IV ONE (15:05)
[2018-02-01] MEDS ORDERED: ONDANSETRON 4 MG/2 ML VIAL IVP ONE (15:05)
[2018-02-01 15:37] LABS: PLATELET COUNT, AUTOMATED 267 K/uL (150-450)
--- NOTE | 2018-02-01 16:35 | RADIOLOGY IMAGING REPORT ---
FACILITY: [facility] - [place] PATIENT NAME: Michaelle Wiggins : 1965 MR: [id number] V: [id number] EXAM DATE: ORDERING PHYSICIAN: CISCO ROCA TECHNOLOGIST: Location: [facility] Patient: Michaelle Wiggins : 1965 Visit/Account:[id number] Date of Sevice: 02/01/2018 CT abdomen and pelvis without contrast Indication: Abdominal pain. More left-sided. Comparison: 02/08/2009. Technique: Axial CT images are obtained through the abdomen and pelvis. Reformatted coronal and sagit pako images were reviewed. IV contrast was not administered. One of the following dose optimization techniques was utilized in the performance of this exam: auto mated exposure control; adjustment of the mA and/or kV according to the patient's size; or use of an iterative reconstruction technique. Specific details can be referenced in the facility's radiology C T exam operational policy. Findings: Lower lung becerra: Limited views lower lung field are unremarkable. Evaluation of the solid organs of the abdomen is limited without IV contrast. Liver: No focal parenchymal abnormality of the liver. Biliary: Gallbladder appears unremarkable as well as the intra and extra hepatic biliary system. Pancreas: No focal abnormality. Spleen: Normal appearance. Adrenal glands: Unremarkable. Kidneys / retroperitoneum: No evidence of nephrolithiasis or hydronephrosis. No focal abnormality. Bowel / peritoneum / mesenteries: Colon shows no focal normality. The appendix normal. Small bowel sh ows no focal normality or obstruction. Stomach is unremarkable. No free air, free fluid, fluid collections or areas of inflammation. Lymph node assessment: No pathologic adenopathy identified. Pelvic structures: Pelvic structures visualized within normal limits. Multiple vascular phlebolith s are present in the pelvis. Vessels: No significant atherosclerotic calcifications seen throughout a nonaneurysmal abdominal aort a and branches. Musculoskeletal / Body wall: No acute or aggressive osseous abnormality. Mild degenerative changes sp ine and hips. IMPRESSION: 1. No acute intra-abdominal abnormality identified. Report Dictated By: Deon Peres at 02/01/2018 4:25 PM Report E-Signed By: Deon Peres at 02/01/2018 4:31 PM WSN:[id number]
[2018-02-01] MEDS ORDERED: KETOROLAC 30 MG/ML VIAL IVP ONE (17:25)
[2018-02-01 17:30] VITALS: BP 146/96
[2018-02-01] MEDS ORDERED: ACYC800T99 PO (17:47)
== END 2018-02-01 18:01 | disposition home or self-care (01) ==
LOC: ER 14:41
DX: R10.32 Left lower quadrant pain (principal)
CPT/HCPCS: 74176; 81001; 83690; 85025; 96361; 96374; 96375; 99284; J1885; J2405; J7030; 82040; 82247; 82310; 82374; 82435; 82565; 82947; 84075; 84132; 84155; 84295; 84450; 84460; 84520

== ENCOUNTER → 2018-07-12 16:23 | Outpatient (RCR) | payer OTHER ==
[~2018-07-12 16:23] MED LIST changes: +ACYC800T99 PO; +ALBU8.5H IH; +CIPR-214 PO; +FLU60VIA41 IM; +LIDO700A19 TOP; -LOSA50TA74 PO; +LOSA50TA80 PO
== END | disposition home or self-care (01) ==
LOC: PT 16:23
PROVIDERS: ATTEND Neurological Surgery
DX: Z02.9 Encounter for administrative examinations, unspecified (principal)

== ENCOUNTER → 2018-10-29 | Outpatient (CLI) | payer OTHER ==
[~2018-10-29] MED LIST changes: +CHOL100059 PO
[2018-10-29 14:08] LABS: PLATELET COUNT, AUTOMATED 268 K/uL (150-450)
[2018-10-29 14:26] LABS: LDL CHOLESTEROL 86 mg/dl
== END ==
LOC: LAB 13:49
PROVIDERS: ATTEND Emergency Medicine
DX: I10 Essential (primary) hypertension (principal); E78.00 Pure hypercholesterolemia, unspecified; K21.9 Gastro-esophageal reflux disease without esophagitis; G90.519 Complex regional pain syndrome I of unspecified upper limb
CPT/HCPCS: 36415; 82040; 82247; 82306; 82310; 82374; 82435; 82465; 82565; 82607; 82947; 83718; 84075; 84132; 84155; 84295; 84443; 84450; 84460; 84478; 84520; 85025

== ENCOUNTER → 2018-11-07 | Outpatient (CLI) | payer OTHER ==
--- NOTE | 2018-11-09 15:44 | RADIOLOGY IMAGING REPORT ---
FACILITY: [facility] PATIENT NAME: DANIAL GUILLAUME : [id number] MR: [id number] V: [id number] EXAM DATE: ORDERING PHYSICIAN: MAL SHINE TECHNOLOGIST: Giovanna Godinez PROCEDURE: BILATERAL DIGITAL SCREENING MAMMOGRAM WITH CAD ASSISTED INTERPRETATION & 3D TOMOSYNTHESIS. REASON FOR STUDY: Screening. FAMILY HISTORY OF BREAST CANCER: None. BREAST PROCEDURES/TREATMENTS: Benign lumpectomy Right breast. COMPARISON: 02/29/12. VIEWS OBTAINED: Bilateral 2D & 3D full field CC & MLO projections. BREAST DENSITY: The breasts are heterogeneously dense which can obscure small masses. MAMMOGRAM FINDINGS: In the upper outer quadrant of the Right breast in the middle and anterior depth there is a segmental grouping of pleomorphic calcifications. Some of these may have been present on the prior study however due to the extreme difference in mammographic technique this could not be determined with complete certainty and Spot magnification view is recommended for further evaluation. Also in the upper outer quadrant of the Left breast in the anterior middle depth is a segmental grouping of pleomorphic calcifications. Again some of these may have been present on the prior study although cannot be determined with complete certainty. Spot magnification view of these calcifications also recommended. IMPRESSION: BIRADS 0: Incomplete. Additional views of both breasts recommended as described. DIAGNOSTIC CATEGORY 0--INCOMPLETE: NEED ADDITIONAL IMAGING EVALUATION. RECOMMENDATIONS: ADDITIONAL MAMMOGRAPHIC VIEWS REQUIRED: BILATERAL BREASTS. Dictated by: Salena Watts M.D. on 11/07/2018 at 16:23 Transcribed by: DONI on 11/09/2018 at 9:58 Approved by: Salena Watts M.D. on 11/09/2018 at 15:41 [facility]
== END ==
LOC: MAMO 00:09
PROVIDERS: ATTEND Emergency Medicine
DX: R92.2 Inconclusive mammogram (principal)
CPT/HCPCS: 77063; 77067

== ENCOUNTER → 2018-11-30 | Outpatient (CLI) | payer OTHER ==
[~2018-11-30] MED LIST changes: +GADOBENATE 529MG/1ML 15ML VIAL IVP ONE
--- NOTE | 2018-11-30 13:13 | RADIOLOGY IMAGING REPORT ---
FACILITY: [facility] - [place] PATIENT NAME: Michaelle Wiggins : 1965 MR: [id number] V: [id number] EXAM DATE: ORDERING PHYSICIAN: [facility] TECHNOLOGIST: Location: [facility] Patient: Michaelle Wiggins : 1965 Visit/Account:[id number] Date of Sevice: 11/30/2018 Examination: MR brain without and with contrast History: Vertigo, balance impairment Comparison: September 24, 2015 Technique: Multiplane MR imaging was performed through the brain without and with contrast. 15 cc IV multihance was administered. Findings: Diffusion: None Ventricles: Normal Midline shift: None Extraxial fluid: None Midline craniocervical structures: Normal Parenchyma: Unchanged in size 6 mm high signal in the medial right thalamus adjacent to the third justine tricle. A small portion of this finding is now cystic compared to prior, axial T2 image 12. Less than 10 unchanged scattered white matter high signal foci. Tiny bandlike apparent chronic infarct along the right upper cerebellum is less visible on this exam, axial T2 image 9. Enhancement: No pathologic enhancement Vascular flow voids: Normal Orbits and paranasal sinuses: Normal Other: Trace unchanged right mastoid fluid. Impression: 1. No apparent acute finding. 2. Unchanged in size 6 mm nonenhancing high signal in the medial right thalamus adjacent to the third ventricle. A portion of this finding is now cystic when compared to prior, a finding of questionable significance. This finding may represent a chronic lacunar infarct or residua of prior inflammation which exhibits interval evolution compared to prior. A low-grade malignant lesion is felt less likely. Given interva l change in appearance follow-up brain MR in 4-6 months may be warranted to document stability. 3. Less than 10 unchanged nonspecific white matter high signal foci of doubtful clinical significance . 4. 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 5. Otherwise normal brain MR without and with contrast. Report Dictated By: Maxi Tejada MD at 11/30/2018 12:50 PM Report E-Signed By: Maxi Tejada MD at 11/30/2018 1:05 PM WSN:[id number]
== END ==
LOC: MRI 01:34
PROVIDERS: ATTEND Nurse Practitioner Family
DX: R42 Dizziness and giddiness (principal); R26.89 Other abnormalities of gait and mobility; R41.3 Other amnesia
CPT/HCPCS: 70553; A9577

== ENCOUNTER → 2018-12-05 | Outpatient (CLI) | payer OTHER ==
[~2018-12-05] MED LIST changes: -GADOBENATE 529MG/1ML 15ML VIAL IVP ONE
--- NOTE | 2018-12-07 09:31 | RADIOLOGY IMAGING REPORT ---
FACILITY: [facility] - [place] PATIENT NAME: DANIAL GUILLAUME : [id number] MR: [id number] V: [id number] EXAM DATE: [id number] ORDERING PHYSICIAN: MAL SHINE TECHNOLOGIST: Tigist Patterson PROCEDURE:BILATERAL DIAGNOSTIC DIGITAL MAMMOGRAM WITH CAD ASSISTED INTERPRETATION & 3D TOMOSYNTHESIS REASON FOR STUDY: Further evaluation FAMILY HISTORY OF BREAST CANCER: BREAST PROCEDURES/TREATMENTS: COMPARISON STUDIES: 11/07/18, 02/29/12 MAMMOGRAM VIEWS OBTAINED: Bilateral 2D spot magnification views in the CC & MLO projections BREAST DENSITY: The breasts are heterogeneously dense which can obscure small masses. MAMMOGRAM FINDINGS: There are rounded calcifications scattered throughout the upper outer quadrant of both breasts with both mixed macro & microcalcifications. The pattern is relatively symmetric bilaterally. Of note, in the previous report some of these may have been present on the prior mammogram although to the extreme difference in technical factors direct comparison is not possible. A 6 month follow up bilateral mammogram is recommended to evaluate the above mentioned calcifications. DIAGNOSTIC CATEGORY 3--PROBABLY BENIGN FINDING. RECOMMENDATIONS: SIX MONTH FOLLOW-UP DIAGNOSTIC MAMMOGRAM: BILATERAL BREASTS. IMPRESSION: BIRADS 3: Probably benign finding. A 6 month follow up bilateral diagnostic mammogram is recommended as detailed above. Dictated by: Salena Watts M.D. on 12/05/2018 at 17:10 Transcribed by: CECI on 12/06/2018 at 14:33 Approved by: Salena Watts M.D. on 12/07/2018 at 9:26 [facility]
== END ==
LOC: MAMO 01:27
PROVIDERS: ATTEND Emergency Medicine
DX: R92.8 Other abnormal and inconclusive findings on diagnostic imaging of breast (principal)
CPT/HCPCS: 77062; 77066